=== PATIENT | male | born 1945 | race Caucasian/White ===

== ENCOUNTER 2016-10-02 05:11 | Inpatient (IN) | payer OTHER ==
[~2016-10-02] VITALS: Ht 160 cm; Wt 77.6 kg
[~2016-10-02 05:11] MED LIST: ADVIL,NUPRIN,M200 MG PO; AUGMENTIN500 MG PO; COLACE100 MG PO; DILAUDID2 MG PO; LIPITOR40 MG PO; LOPRESSOR25 MG PO; LOW DOSE ASPIRI81 M1 PO; PLAVIX75 MG PO; PROTONIX40 MG PO; ST. JOSEPH ASPI81 MG PO; TYLENOL ARTHRI650 MG PO; TYLENOL EXTRA500 MG PO
[2016-10-02 06:18] VITALS: BP 118/73
[2016-10-02 06:20] VITALS: BP 141/63
[2016-10-02] MEDS ORDERED: HYDROCODON-ACE1 EAC7 PO (11:06)
[2016-10-02 17:55] VITALS: BP 160/80
[2016-10-02 19:35] VITALS: BP 157/89
[2016-10-02 23:20] VITALS: BP 139/72
[2016-10-03 03:12] VITALS: BP 139/72; BP 187/93
[2016-10-03 04:12] VITALS: BP 133/67
[2016-10-03 07:45] VITALS: BP 119/72
== END 2016-10-03 10:09 | disposition home or self-care (01) | DRG 39 ==
LOC: 2SOUTH → 4EAST 18:14
DX: I65.23 Occlusion and stenosis of bilateral carotid arteries (principal); E78.00 Pure hypercholesterolemia, unspecified; I25.10 Atherosclerotic heart disease of native coronary artery without angina pectoris; I10 Essential (primary) hypertension; E78.2 Mixed hyperlipidemia; Z86.73 Personal history of transient ischemic attack (TIA), and cerebral infarction without residual deficits; Z79.82 Long term (current) use of aspirin; I25.2 Old myocardial infarction; Z79.02 Long term (current) use of antithrombotics/antiplatelets; Z87.891 Personal history of nicotine dependence; Z91.041 Radiographic dye allergy status
CPT/HCPCS: 93005; C1768; J0360; J0690; J1644; J1650; J2250; J2405; J2720; J2795; J3010